=== PATIENT | female | born 1990 | race Caucasian/White ===

== ENCOUNTER 2016-11-22 01:59 | Inpatient (IN) | payer OTHER ==
[2016-11-22] MEDS ORDERED: RINGERS SOLUTION,LACTATED 1,000 ML IV PRN (03:42)
[2016-11-22] MEDS ORDERED: LIDOCAINE HCL 50 ML VIAL PERI PRN (03:42)
[2016-11-22] MEDS ORDERED: BUTORPHANOL TARTRATE 2 MG/ML VIAL IV PRN (03:42)
[2016-11-22] MEDS ORDERED: RINGERS SOLUTION,LACTATED 1,000 ML IV ONE (03:42)
[2016-11-22] MEDS ORDERED: HYDROcodone/ACETAMINOPHEN 1 EACH TABLET PO PRN (05:14)
[2016-11-22] MEDS ORDERED: HYDROCORTISONE 30 APPL TUBE TP PRN (05:14)
[2016-11-22] MEDS ORDERED: GLYCERIN/WITCH HAZEL LEAF 40 APPL BOX TP PRN (05:14)
[2016-11-22] MEDS ORDERED: BENZOCAINE/MENTHOL 81 SPRAY CAN TP PRN (05:14)
[2016-11-22] MEDS ORDERED: BISACODYL 10 MG SUPP.RECT RC PRN (05:14)
[2016-11-22] MEDS ORDERED: oxyCODONE HCL/ACETAMINOPHEN 1 TAB TABLET PO PRN (05:14)
[2016-11-22] MEDS ORDERED: SENNOSIDES 8.6 MG TABLET PO PRN (05:14)
[2016-11-22] MEDS: OXYTOCIN/DEXTROSE 5%-WATER 30 UNITS/500 ML BAG IV ONE ×2 (05:50→07:15)
--- NOTE | 2016-11-22 05:50 | HP ---
Chief Complaint - Chief Complaint Date of Service: 11/22/16 History of Present Illness: Lara is a 26 yo at 38 weeks 0 days gestation with SIDDHARTHA 12/06/2016 who presents today at 02:30 AM with report of SROM, clear onset at 12:30AM today. She states she awakened to SROM. She reported mild contractions and good movement. Denied vaginal bleeding. I received call at 02:42 from Kelly NARVAEZ, who reported patient arrived and that cervix was 4 cm dilated, contractions were every 2-3 minutes, and that nitrazine test was negative for ROM. RN instructed to observe patient for 2 hours and re-check cervix and update MD and to call if any evidence of ROM or cervical change that should occur any sooner. RN reports that she re-checked patient at 04:09 and cervix was still 4 cm, but this time she noted gross rupture of membranes. I received call from Kelly NARVAEZ at 04:20 that patient cervix was " a rim" and to come for delivery. I arrived at 04:30 AM to the unit and when I walked into the room I observed an active, crying term male in the hands of the RN and cord was being clamped by 2nd RN and cut by father of the baby. OB HISTORY: SIDDHARTHA 12/06/2016 set by LMP of 03/01/2017 1. Smoker 2. Declined QUAD Screen LABS: O positive, antibody negative Rubella Immune VDRL non-reactive, HBsAg non-reactive, HIV non-reactive GC/CT negative/negative 1 hour GTT 88 GBS negative - Patient's Past Medical History Patient History - Medical: No pertinent hx Patient History - Cardiac/Respiratory: No pertinent hx Patient History - Cancer: No Hx of Cancer Patient History - Surgical Procedures: No surgical history Patient History - Other: None - Family History Family History:: no untoward family reactions to anesthesia, no familial bleeding tendencies, no family history of clotting disorders - Social History Living Situations: significant other Abuse History: No History of abuse Psych History: No pertinent hx Does anyone smoke in the home?: Yes - patient and FOB both smoke Smoking Status: Current every day smoker Cigarettes Packs Per Day: 1 Have you smoked in the past 12 months: Yes Do you dip or chew tobacco: No Initiate information on Smoking Cessation: Yes Alcohol Use: none Drug Use: none Review Of Systems (GEN) - Review of Systems EENTM: Present: No Symptoms Reported Respiratory: Present: No Symptoms Reported Cardiac: Present: No Symptoms Reported Abdominal: Present: Abdominal Pain - contractions every 2 minutes Genitourinary: Present: No Symptoms Reported Musculoskeletal: Present: No Symptoms Reported Neurological: Present: No Symptoms Reported Skin: Present: No Symptoms Reported Endocrine: Present: No Symptoms Reported Additional Comments: MEDICATIONS: Denies taking any OTC or prescription mediations Allergies/Adverse Reactions: Allergies Allergy/AdvReac Type Severity Reaction Status Date / Time No Known Allergies Allergy Unverified 01/13/13 22:09 Exam - Exam Vital Signs: Vital Signs - Last Taken Temp 36.8 C 01/16/13 07:21 Pulse Resp BP 122/71 01/16/13 07:21 Pulse Ox Constitutional: Present: Alert, Oriented x3, Cooperative, Well developed, Well nourished, No distress ENT Exam: Present: normal ENT inspection, hearing grossly normal, pharynx normal , TMs normal Neck: Present: non-tender, full range of motion, trachea midline Back Exam: Present: normal inspection, no CVA tenderness, no vertebral tenderness Breasts: Present: Exam deferred Respiratory: Present: lungs clear, normal breath sounds, no respiratory distress Cardiovascular/Chest: Present: normal peripheral pulses, regular rate, rhythm, no chest tenderness, no edema, no gallop, no JVD, no murmur Abdomen: Present: soft, nontender, nondistended, negative Angeles sign /Rectal: Present: Other - Vaginal laceration x2 - small first degree near hymen. Repaired with 2-0 vicryl with good hemostasis. Neurologic: Present: data technician II-XII nml as tested, normal mood/affect, oriented x 3 Appearance: Present: appropriate appearance Eye contact: Present: cooperative, good eye contact Thoughts: Present: normal thought pattern, no apparent hallucination Diagnostic Studies: CBC and T&S ordered Assessment/Plan - Narrative Narrative: IMPRESSION: 26 yo P2002 at 38 weeks 0 days gestation with SROM and active labor who had precipitous spontaneous vaginal delivery. PLAN: 1. Admitted for labor and SROM 2. Obtain T&S and CBC 3. Placenta delivered spontaneously and intact. 4. Smalll first degree vaginal laceration x2 were noted and repaired with 2-0 Vicryl with good hemostasis. 5. Routine care.
--- NOTE | 2016-11-22 06:00 | OR ---
Operative Report - Dictated Report Narrative: DELIVERY NOTE Lara presented at 38w0d gestation with report of SROM at 12:30 AM and regular contractions. Nitrazine was negative on admission. Cervix was 4 cm dilated on admission. She proceeded to have precipitous and term male was delivered by Kelly Pittman RN at 04:30. I arrived moments after delivery of baby. Cord was clamped by RN and cut by father of the baby. Baby weighed 2748 grams, 6 lb 0.9 oz, with Apgars of 9 at one minute and 9 at 5 minutes. Placenta was delivered spontaneously and intact. Vaginal laceration x2 - both first degree and located at hymen. These were repaired with 2-0 vicryl with excellent hemostasis. Placenta was delivered by me spontaneously and intact. EBL 250 ml. Fundus firm and non-tender. Baby appeared pink and vigorous. Mom and baby doing well in LDRP.
[2016-11-22 06:05] LABS: Hemoglobin 11.3 gm/dL (12.5-16.0); Mean Cell Volume 95.4 fl (78-100); Mean Corpuscular Hemoglobin 32.7 pg (27-31); Mean Corpuscular Hgb Conc 34.2 g/dl (32-36); Mean Platelet Volume 11.1 fl (6.0-9.5); Neutrophil # 16.3 K/mm3 (1.3-6.0); Neutrophil % 85.4 % (42-75.0); Platelet Count 142 K/mm3 (150-450); Red Blood Count 3.46 M/mm3 (4.2-5.4); Red Cell Distribution Width 13.2 % (11.5-14.0); White Blood Count 19.1 K/mm3 (4.0-10.5)
[2016-11-22] MEDS: oxyCODONE HCL/ACETAMINOPHEN 1 TAB TABLET PO PRN ×2 (07:15→17:10)
[2016-11-22] MEDS: IBUPROFEN 800 MG TABLET PO PRN ×2 (07:15→17:10)
[2016-11-22] MEDS: DOCUSATE SODIUM 100 MG CAPSULE PO SCH ×2 (10:56→20:37)
[2016-11-23] MEDS: oxyCODONE HCL/ACETAMINOPHEN 1 TAB TABLET PO PRN (02:09)
[2016-11-23] MEDS: IBUPROFEN 800 MG TABLET PO PRN ×3 (04:36→21:29)
--- NOTE | 2016-11-23 07:05 | PN ---
Subjective - Date and Time Seen Date: 11/23/16 Subjective Narrative: Lara denies complaints. She is ambulating and voiding freely. She is tolerating general diet without nausea/vomiting. She reports good pain control. She reports minimal lochia. Objective - Review of Systems Generalized/Overall Review: Reports: No Symptoms Reported EENTM: Reports: No Symptoms Reported Respiratory: Reports: No Symptoms Reported Cardiac: Reports: No Symptoms Reported Abdominal: Reports: No Symptoms Reported Genitourinary Symptoms: Reports: No Symptoms Reported Musculoskeletal Complaints: Reports: No Symptoms Reported Neurological: Reports: No Symptoms Reported Skin: Reports: No Symptoms Reported Endocrine: Reports: No Symptoms Reported - Vitals Vitals: Last Vital Signs Temp 36.4 C L 11/23/16 02:29 Pulse 74 11/23/16 02:29 Resp 16 11/23/16 02:29 BP 132/70 11/23/16 02:29 Pulse Ox 100 11/23/16 02:29 - Exam Neck: Present: non-tender Breasts: Present: Exam deferred Respiratory: Present: lungs clear, normal breath sounds, no respiratory distress Abdomen: Present: Normal bowel sounds, soft, nontender, nondistended, negative Angeles sign /Rectal: Present: Exam deferred Neurologic: Present: normal mood/affect, oriented x 3 Appearance: Present: appropriate appearance Eye contact: Present: cooperative Thoughts: Present: normal thought pattern Assessment/Plan Plan Narrative: 26 yo [id number] PPD#1 s/p Plan: 1. Routine care. 2. Plan discharge home tomorrow if stable.
[2016-11-23] MEDS: DOCUSATE SODIUM 100 MG CAPSULE PO SCH ×2 (08:32→21:29)
--- NOTE | 2016-11-24 06:32 | PN ---
Subjective - Date and Time Seen Date: 11/24/16 Time: 06:30 Subjective Narrative: Pt denies complaints. She is bottle feeding. She reports good pain control and minimal lochia. She is tolerating general diet without nausea/vomiting. She is ambulating well and voiding freely. Objective - Review of Systems Generalized/Overall Review: Reports: No Symptoms Reported EENTM: Reports: No Symptoms Reported Respiratory: Reports: No Symptoms Reported Cardiac: Reports: No Symptoms Reported Abdominal: Reports: No Symptoms Reported Genitourinary Symptoms: Reports: Other - Minimal lochia Musculoskeletal Complaints: Reports: No Symptoms Reported Neurological: Reports: No Symptoms Reported Skin: Reports: No Symptoms Reported Endocrine: Reports: No Symptoms Reported - Vitals Vitals: Last Vital Signs Temp 36.9 C 11/23/16 23:45 Pulse 64 11/23/16 23:45 Resp 16 11/23/16 23:45 BP 106/56 11/23/16 23:45 Pulse Ox 97 11/23/16 23:45 - Exam Constitutional: Present: Alert, Oriented x3, Cooperative, No distress ENT Exam: Present: normal ENT inspection, hearing grossly normal Neck: Present: non-tender, full range of motion Breasts: Present: Exam deferred Respiratory: Present: lungs clear, normal breath sounds, no respiratory distress , No rales, No wheezing Cardiovascular/Chest: Present: normal peripheral pulses, regular rate, rhythm, no edema, no gallop, no JVD, no murmur Abdomen: Present: Normal bowel sounds, soft, nontender /Rectal: Present: External genitalia normal Extremity: Present: normal range of motion, non-tender, normal inspection, no pedal edema, no calf tenderness Skin Exam: Present: normal color, warm/dry Neurologic: Present: alert, normal mood/affect, oriented x 3 Appearance: Present: appropriate appearance Eye contact: Present: cooperative, good eye contact, normal speech Thoughts: Present: normal thought pattern Assessment/Plan Plan Narrative: 26 yo PPD#2 s/p doing well. Plan: 1. Routine care. 2. Abstinence for contraception for next 6 weeks. Will discuss contraceptive options with OB provider in office at 6 wk PP visit. 3. NSAIDs prn pain control. 4. Discharge home today.
[2016-11-24 09:55] VITALS: BP 121/72
== END 2016-11-24 13:00 | disposition home or self-care (01) | DRG 775 ==
LOC: OBCLINIC 01:59 → OB 03:28 → MS 11-23 22:27
PROVIDERS: ADMIT Obstetrics & Gynecology; ATTEND Obstetrics & Gynecology
PROC: 10E0XZZ Delivery of Products of Conception, External Approach (ICD-10-PCS; principal; 2016-11-22)
PROC: 4A1H7CZ Monitoring of Products of Conception, Cardiac Rate, Via Natural or Artificial Opening (ICD-10-PCS; 2016-11-22)
PROC: 10H073Z Insertion of Monitoring Electrode into Products of Conception, Via Natural or Artificial Opening (ICD-10-PCS; 2016-11-22)
PROC: 0HQ9XZZ Repair Perineum Skin, External Approach (ICD-10-PCS; 2016-11-22)
DX: O62.3 Precipitate labor (principal); O70.0 First degree perineal laceration during delivery; O99.334 Smoking (tobacco) complicating childbirth; Z3A.38 38 weeks gestation of pregnancy; Z37.0 Single live birth